=== PATIENT | male | born 1995 | race Two or more races ===

== ENCOUNTER 2019-03-11 21:05 | Emergency (ER) | payer OTHER ==
--- NOTE | 2019-03-11 21:43 | RADIOLOGY REPORT (SQ) ---
EXAM DESCRIPTION: XR HAND 3 OR MORE VIEWS COMPLETED DATE/TME: 03/11/2019 21:17 CLINICAL HISTORY: 23 years, Male, middle fnger inury with hammer COMPARISON: None. NUMBER OF VIEWS: Three TECHNIQUE: Frontal, oblique, and lateral radiographs of the right hand were obtained LIMITATIONS: None. FINDINGS: Visualized osseous structures are normal in appearance. Joint spaces are well-maintained. No acute fracture or dislocation is evident. IMPRESSION: No acute osseous anomaly. copyright 2010 [employer]- All Rights Reserved
--- NOTE | 2019-03-12 02:37 | ER Document Report ---
ED General - General Chief Complaint: Hand Injury Stated Complaint: FINGER INJURY Time Seen by Provider: 03/12/19 01:25 Notes: Patient is a 23-year-old male, [id number], presents after hitting his right hand with a sledgehammer just prior to arrival. Patient states that he sustained a laceration right dorsal mid finger as well as some superficial abrasions over the right dorsal index finger. Notes a throbbing, aching, constant, severe pain to the right middle finger. Attempts at moving the finger worsen the pain. Nothing improves the pain. No history of similar injuries in the past. Denies any injury to any location. Tetanus is up-to-date. Has not seen his primary care physician regarding today's concerns. Past Medical History - General Information source: Patient - Social History Smoking Status: Never Smoker Frequency of alcohol use: Occasional Drug Abuse: None Lives with: Spouse/Significant other Family History: Reviewed & Not Pertinent Review of Systems - Review of Systems Notes: Constitutional: Negative for fever. Eyes: Negative for visual changes. ENT: Negative for facial injury Cardiovascular: Negative for chest injury. Respiratory: Negative for shortness of breath. Gastrointestinal: Negative for abdominal injury. Genitourinary: Negative for genital injury Musculoskeletal: Positive for right hand injury Skin: Positive for laceration/abrasions. Neurological: Negative for head injury. Physical Exam - Vital signs Vitals: Temp Pulse Resp BP Pulse Ox 97.9 F 65 16 141/78 H 99 03/11/19 21:39 03/11/19 21:39 03/11/19 21:39 03/11/19 21:39 03/11/19 21:39 Interpretation: Normal Notes: PHYSICAL EXAMINATION: GENERAL: Well-appearing, well-nourished and in no acute distress. HEAD: Atraumatic, normocephalic. EYES: sclera anicteric, conjunctiva are normal. ENT: Moist mucous membranes. NECK: Normal range of motion LUNGS: Normal work of breathing HEART: 2+ radial pulses bilaterally EXTREMITIES: no pitting or edema. No cyanosis.Full flexion extension is intact at the MCP, PIP and DIP including against resistance in all digits. NEUROLOGICAL: No focal neurological deficits. Moves all extremities spontaneously and on command. PSYCH: Normal mood, normal affect. SKIN: Warm, Dry, normal turgor, 1.5 cm laceration over the PIP of the right middle finger, abrasions over the dorsal distal surface of the right second digit. Course - Re-evaluation Re-evalutation: 03/12/19 02:36 Patient presents with a laceration over the PIP of the right middle finger, abrasions over the dorsal distal surface of the right second digit. Full flexion extension is intact at the MCP, PIP and DIP including against resistance in all digits. Neurovascular intact with capillary refill less than 1 second in all digits. X-ray without any evidence of underlying fracture. Patient had superficial lacerations overlying his areas that did not require repair with stitching. Tetanus is already up-to-date. At this time will discharge with return precautions and follow-up recommendations. Verbal discharge instructions given a the bedside and opportunity for questions given. Medication warnings reviewed. Patient is in agreement with this plan and has verbalized understanding of return precautions and the need for primary care follow-up in the next 24-72 hours. 03/12/19 04:47 - Vital Signs Vital signs: Temp Pulse Resp BP Pulse Ox 98.4 F 62 20 130/79 H 100 03/12/19 03:33 03/12/19 03:33 03/12/19 03:33 03/12/19 03:33 03/12/19 03:33 - Diagnostic Test Radiology reviewed: Image reviewed, Reports reviewed Radiology results interpreted by me: 03/12/19 02:37 Right hand x-ray: No acute fracture dislocation Discharge - Discharge Clinical Impression: Injury of right middle finger Qualifiers: Encounter type: initial encounter Qualified Code(s): S69.91XA - Unspecified injury of right wrist, hand and finger(s), initial encounter Laceration of right middle finger Qualifiers: Encounter type: initial encounter Damage to nail status: without damage Foreign body presence: without foreign body Qualified Code(s): S61.212A - Laceration without foreign body of right middle finger without damage to nail, initial encounter Condition: Good Disposition: HOME, SELF-CARE Additional Instructions: Return immediately if you develop spreading redness around the wound, pus from the wound, worsening pain, or a fever of >100.4. Keep the area clean and dry. Wash gently with soap and water twice daily and cover with antibiotic ointment. Your x-ray does not demonstrate any evidence of a fracture Forms: Return to Work
[2019-03-12 03:35] VITALS: BP 130/79
== END 2019-03-12 03:33 | disposition home or self-care (01) ==
LOC: ER 21:05
DX: S61.212A Laceration without foreign body of right middle finger without damage to nail, initial encounter (principal); S69.91XA Unspecified injury of right wrist, hand and finger(s), initial encounter; W23.0XXA Caught, crushed, jammed, or pinched between moving objects, initial encounter
CPT/HCPCS: 99283